=== PATIENT | female | born 1980 | race Caucasian/White ===

== ENCOUNTER 2025-05-29 04:44 | Emergency (ER) | payer BC, OTHER ==
[~2025-05-29] VITALS: Ht 157.5 cm; Wt 118.1 kg
[2025-05-29] MEDS ORDERED: DIPH50CA PO (04:59)
[2025-05-29 08:12] LABS: BASO # 0.0 10^3/uL (0.0-0.2); BASO % 0.2 % (0.0-1.0); EOS # 0.0 10^3/uL (0.0-0.5); EOS % 0.1 % (0.0-3.0); LYMPH # 1.5 10^3/uL (1.5-5.0); LYMPH % 7.8 % (24.0-44.0); MONO # 0.5 10^3/uL (0.0-0.8); MONO % 2.4 % (2.0-8.0); NEUTROPHILS # 17.1 10^3/uL (1.5-8.5); NEUTROPHILS % 88.7 % (36.0-66.0); PLATELET COUNT, AUTOMATED 353 10^3/uL (150-450)
[2025-05-29 08:42] LABS: ALT/SGPT 15 U/L (7.0-40); AST/SGOT 17 U/L (<34); CALCIUM LEVEL 9.2 MG/DL (8.5-10.1); CARBON DIOXIDE LEVEL 27 MMOL/L (20-31); CHLORIDE LEVEL 105 MMOL/L (98-107); CREATININE FOR GFR 0.77 MG/DL (0.55-1.30); GLOMERULAR FILTRATION RATE > 90.0 (>58); MAGNESIUM LEVEL 1.8 MG/DL (1.8-2.4); POTASSIUM SERUM 4.4 MMOL/L (3.5-5.1); SODIUM LEVEL 141 MMOL/L (136-145)
[2025-05-29 08:43] LABS: FREE T4 1.10 NG/DL (0.89-1.76)
[2025-05-29 08:45] VITALS: BP 137/82; O2SAT 100
[2025-05-29] MEDS ORDERED: PRED20TA PO (08:55)
[2025-05-29 08:59] VITALS: TEMP 99
== END 2025-05-29 09:09 | disposition home or self-care (01) ==
LOC: M ED 04:44
DX: R55 Syncope and collapse (principal); T78.40XA Allergy, unspecified, initial encounter; Z88.0 Allergy status to penicillin; Z88.8 Allergy status to other drugs, medicaments and biological substances